=== PATIENT | male | born 1985 | race Caucasian/White ===

== ENCOUNTER → 2016-09-14 14:17 | Emergency (ER) | payer OTHER | END | disposition left against medical advice (07) | LOC: ER 14:17 | DX: R10.32 Left lower quadrant pain (principal); K21.9 Gastro-esophageal reflux disease without esophagitis; K50.90 Crohn's disease, unspecified, without complications; Z88.6 Allergy status to analgesic agent; F17.210 Nicotine dependence, cigarettes, uncomplicated; Z79.899 Other long term (current) drug therapy | CPT/HCPCS: 36415; 80307 ==

== ENCOUNTER 2016-11-20 17:38 | Emergency (ER) | payer OTHER | END 2016-11-20 21:02 | disposition home or self-care (01) | LOC: ER 17:38 | DX: R10.84 Generalized abdominal pain (principal); K21.9 Gastro-esophageal reflux disease without esophagitis; Z87.19 Personal history of other diseases of the digestive system; Z87.891 Personal history of nicotine dependence; Z88.5 Allergy status to narcotic agent; Z79.899 Other long term (current) drug therapy | CPT/HCPCS: 36415; 96361; 96374; 96375; J1885 ==